=== PATIENT | female | born 1955 | race Caucasian/White ===

== ENCOUNTER 2018-08-21 17:05 | Emergency (ER) | payer MEDICARE ==
[~2018-08-21] VITALS: Ht 165.1 cm; Wt 77.1 kg
[~2018-08-21 17:05] MED LIST: GABA-490 PO; HYDR-2890 PO; [UNRECOGNIZED DRUG - REMARK] PO
--- NOTE | 2018-08-21 17:12 | NUR ---
PT REFUSED IV INSERTION AND LABS, EXPLAINED TO PT THE NEED FOR A SECURE IV SITE AND LAB VALUES. PT VERBALIZED UNDERSTANDING AND REFUSED.
--- NOTE | 2018-08-21 17:16 | NUR ---
PT ADVISED AGAIN THE NEED FOR SECURE IV SITE, PT CONSENTED TO PROCEDURE AFTER TALKING TO HER DAUGHTER.
[2018-08-21] MEDS ORDERED: NS IV 1000 ML 1,000 ML IV SCH (17:48)
[2018-08-21 17:58] LABS: BASOPHILS # (AUTO) 0.1 10^3/uL (0.0-0.1); BASOPHILS % (AUTO) 1 % (0-10); EOSINOPHILS # (AUTO) 0.2 10^3/uL (0.0-0.3); EOSINOPHILS % (AUTO) 3 % (0-10); HEMATOCRIT 37 % (35-52); HEMOGLOBIN 12.5 G/DL (11.5-16.0); LYMPHOCYTES # (AUTO) 1.4 X 10^3 (1.0-4.0); LYMPHOCYTES % (AUTO) 24 % (12-44); MEAN CORPUSCULAR HEMOGLOBIN 31 PG (25-34); MEAN CORPUSCULAR HGB CONC 34 G/DL (32-36); MEAN CORPUSCULAR VOLUME 94 FL (80-99); MEAN PLATELET VOLUME 10.5 FL (7.4-10.4); MONOCYTES # (AUTO) 0.6 X 10^3 (0.0-1.0); MONOCYTES % (AUTO) 11 % (0-12); NEUTROPHILS # (AUTO) 3.6 X 10^3 (1.8-7.8); NEUTROPHILS % (AUTO) 61 % (42-75); PLATELET COUNT 246 10^3/uL (130-400); RED CELL DISTRIBUTION WIDTH 13.1 % (10.0-14.5); WHITE BLOOD COUNT 5.8 10^3/uL (4.3-11.0)
[2018-08-21 18:13] LABS: ALANINE AMINOTRANSFERASE 20 U/L (0-55); ALBUMIN 4.1 GM/DL (3.2-4.5); ALKALINE PHOSPHATASE 101 U/L (40-136); AMMONIA 52 UMOL/L (11-32); BILIRUBIN,TOTAL 0.2 MG/DL (0.1-1.0); BUN/CREATININE RATIO 18; CARBON DIOXIDE 25 MMOL/L (21-32); CHLORIDE 110 MMOL/L (98-107); GFR ESTIMATED > 60; GLUCOSE 77 MG/DL (70-105); MAGNESIUM 2.3 MG/DL (1.8-2.4); POTASSIUM 3.9 MMOL/L (3.6-5.0); SODIUM 142 MMOL/L (135-145); TOTAL PROTEIN 7.1 GM/DL (6.4-8.2)
[2018-08-21 18:18] LABS: BILIRUBIN,URINE NEGATIVE (NEGATIVE); CLARITY,URINE SLIGHTLY CLOUDY; COLOR,URINE YELLOW; GLUCOSE, URINE (UA) NEGATIVE (NEGATIVE); KETONES,URINE NEGATIVE (NEGATIVE); LEUKOCYTE ESTERASE ,URINE 3+ (NEGATIVE); NITRITE,URINE NEGATIVE (NEGATIVE); PH,URINE 5 (5-9); PROTEIN,URINE 1+ (NEGATIVE); UROBILINOGEN,URINE NORMAL (NORMAL)
[2018-08-21 18:18] LABS: ERYTHROCYTE SEDIMENTATION RATE 20 MM/HR (0-30)
[2018-08-21 18:26] LABS: BACTERIA,URINE MODERATE /HPF
[2018-08-21 18:32] LABS: AMPHETAMINE SCREEN, URINE NEGATIVE (NEGATIVE); BARBITURATE SCREEN URINE NEGATIVE (NEGATIVE); BENZODIAZEPINES SCREEN URINE NEGATIVE (NEGATIVE); CANNABINOID SCREEN, URINE NEGATIVE (NEGATIVE); COCAINE SCREEN URINE NEGATIVE (NEGATIVE); METHADONE STAT NEGATIVE (NEGATIVE); METHAMPHETAMINE SCREEN URINE S NEGATIVE (NEGATIVE); OPIATE SCREEN URINE POSITIVE (NEGATIVE); OXYCODONE STAT NEGATIVE (NEGATIVE); PROPOXYPHENE STAT NEGATIVE (NEGATIVE); TRICYCLIC ANTIDEPRESSANTS SCRE NEGATIVE (NEGATIVE)
--- NOTE | 2018-08-21 18:43 | Diagnostic Imaging Report ---
INDICATION: Acute mental status changes, confusion, and dizziness FINDINGS: Frontal view of the chest demonstrates the lungs to be clear. The heart, mediastinum, pulmonary vascularity and visualized bony thorax are normal. IMPRESSION: Normal portable chest. Dictated by: Dictated on workstation # [id number]
[2018-08-21] MEDS ORDERED: CARB200T5 (19:02)
[2018-08-21] MEDS ORDERED: DONE10TA41 (19:02)
[2018-08-21] MEDS ORDERED: PREG75CA (19:02)
[2018-08-21] MEDS ORDERED: APIX5TAB (19:02)
[2018-08-21] MEDS ORDERED: ATOR10TA66 (19:02)
[2018-08-21] MEDS ORDERED: METO-333 (19:02)
[2018-08-21] MEDS ORDERED: PREG150C (19:02)
[2018-08-21] MEDS ORDERED: DIME240C2 (19:02)
[2018-08-21] MEDS ORDERED: BACL20TA (19:02)
--- NOTE | 2018-08-21 19:04 | Diagnostic Imaging Report ---
PROCEDURE: CT head without contrast. TECHNIQUE: Multiple contiguous axial images were obtained through the brain without the use of intravenous contrast. Auto Exposure Controls were utilized during the CT exam to meet ALARA standards for radiation dose reduction. INDICATION: Dizziness, confusion. COMPARISON: 08/07/2014. FINDINGS: Mild degree of cerebral cortical atrophy and periventricular white matter disease are stable chronic findings. There is no focal or generalized cortical edema. No findings of elevated pressures. There is no intracerebral hemorrhage. There is no mass or mass effect. The orbits, sinuses, and calvarium appear nonacute. No change. IMPRESSION: Atrophy and white matter disease stable. No hemorrhage, edema, or acute finding. Dictated by: Dictated on workstation # [id number]
[2018-08-21] MEDS ORDERED: cefTRIAXone FOR IV USE 1,000 MG in WATER (STERILE) FOR INJECTION 10 ML IV ONE (19:15)
[2018-08-21] MEDS ORDERED: methylPREDNISolone 125 MG (Solu-MEDROL) VIAL IVP ONE (19:15)
[2018-08-21] MEDS ORDERED: NITR-65 PO (19:49)
--- NOTE | 2018-08-21 19:49 | ED General ---
General Chief Complaint: Dizziness/Syncope Stated Complaint: CONFUSION/DIZZINESS Nursing Triage Note: PT PRESENTS TO THE ED AMBULATORY, VERBALIZED SHE HAS HAD INCREASING MEMORY RETENTION ISSUES AND INTERMITTENT DIZZYNESS, PT IS UNABLE TO RECALL HOW LONG THESE SYMPTOMS ARE PRESENT. DAUGHTER CALLS THE PT ON THE PHONE AND REPORTS THE PT HAS A HX OF MS AND EARLY ONSET ALZHEIMERS. PT STATES THE DIZZYNESS IS A COMMON OCCURENCE FOR HER, STATES THAT THIS TIME FEELS SIMILAR TO PREVIOUS EPISODES, DATING BACK TO AN UNKNOWN DATE AND TIME PER PT Nursing Sepsis Screen: No Definite Risk Source of Information: Patient (EXTREMELY POOR HISTORIAN), Family (DAUGHTER GIVES VERY BRIEF INFORMATION ), Other (BOYFRIEND CANNOT GIVE ANY RELEVANT INFORMATION) History of Present Illness Date Seen by Provider: Aug 21, 2018 Time Seen by Provider: 18:00 Initial Comments PT ARRIVES VIA POV--PT REPORTEDLY DROVE HERSELF HERE, ALLEGEDLY TO VISIT A NEIGHBOR IN THE HOSPITAL, BUT SOMEHOW ENDED UP IN ER--DETAILS ARE NOT KNOWN. Allergies and Home Medications Allergies Coded Allergies: No Known Drug Allergies (Unverified , 08/07/14) Home Medications Gabapentin 400 Mg Capsule, 800 MG PO UP TO 5X DAILY, (Reported) Hydrocodone Bit/Acetaminophen 1 Each Tablet, 1 EACH PO QID PRN, (Reported) Nitrofurantoin Monohyd/M-Cryst 100 Mg Capsule, 100 MG PO BID Prescribed by: JULIUS ARORA on 08/21/181948 [Ms Meds] , Unknown Dose PO DAILY, (Reported) Past Atbmsog-Bxlobl-Gtnaec Hx Patient Social History Recent Foreign Travel: No Contact w/Someone Who Travel: No Recent Infectious Disease Expo: No Recent Hopitalizations: No Immunizations Up To Date Tetanus Booster (TDap): Unknown Seasonal Allergies Seasonal Allergies: No Past Medical History Surgeries: Yes Gallbladder, Hysterectomy Respiratory: No Cardiac: No Neurological: Yes Multiple Sclerosis : No Reproductive Disorders: Yes (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 oz. [id number]; BMI Method:Stated Progress/Results/Core Measures Suspected Sepsis Recent Fever Within 48 Hours: No Infection Criteria Present: None New/Unexplained Altered Menta: No Sepsis Screen: No Definite Risk SIRS Temperature:97.4 Pulse: 55 Respiratory Rate: 20 Laboratory Tests 08/21/18 17:26: White Blood Count 5.8 Blood Pressure 164 /94 Mean: 117 Laboratory Tests 08/21/18 17:26: Creatinine 0.80, Platelet Count 246, Total Bilirubin 0.2 Results/Orders Lab Results Laboratory Tests Test 08/21/18 17:26 08/21/18 18:13 08/21/18 18:19 Range/Units White Blood Count 5.8 4.3-11.0 10^3/uL Red Blood Count 3.98 L 4.35-5.85 10^6/uL Hemoglobin 12.5 11.5-16.0 G/DL Hematocrit 37 35-52 % Mean Corpuscular Volume 94 80-99 FL Mean Corpuscular Hemoglobin 31 25-34 PG Mean Corpuscular Hemoglobin Concent 34 32-36 G/DL Red Cell Distribution Width 13.1 10.0-14.5 % Platelet Count 246 130-400 10^3/uL Mean Platelet Volume 10.5 H 7.4-10.4 FL Neutrophils (%) (Auto) 61 42-75 % Lymphocytes (%) (Auto) 24 12-44 % Monocytes (%) (Auto) 11 0-12 % Eosinophils (%) (Auto) 3 0-10 % Basophils (%) (Auto) 1 0-10 % Neutrophils # (Auto) 3.6 1.8-7.8 X 10^3 Lymphocytes # (Auto) 1.4 1.0-4.0 X 10^3 Monocytes # (Auto) 0.6 0.0-1.0 X 10^3 Eosinophils # (Auto) 0.2 0.0-0.3 10^3/uL Basophils # (Auto) 0.1 0.0-0.1 10^3/uL Erythrocyte Sedimentation Rate 20 0-30 MM/HR Sodium Level 142 135-145 MMOL/L Potassium Level 3.9 3.6-5.0 MMOL/L Chloride Level 110 H 98-107 MMOL/L Carbon Dioxide Level 25 21-32 MMOL/L Anion Gap 7 5-14 MMOL/L Blood Urea Nitrogen 14 7-18 MG/DL Creatinine 0.80 0.60-1.30 MG/DL Estimat Glomerular Filtration Rate > 60 BUN/Creatinine Ratio 18 Glucose Level 77 70-105 MG/DL Calcium Level 9.0 8.5-10.1 MG/DL Corrected Calcium 8.9 8.5-10.1 MG/DL Magnesium Level 2.3 1.8-2.4 MG/DL Total Bilirubin 0.2 0.1-1.0 MG/DL Aspartate Amino Transf (AST/SGOT) 25 5-34 U/L Alanine Aminotransferase (ALT/SGPT) 20 0-55 U/L Alkaline Phosphatase 101 40-136 U/L Ammonia 52 H 11-32 UMOL/L Troponin I < 0.028 <0.028 NG/ML C-Reactive Protein High Sensitivity 0.55 H 0.00-0.50 MG/DL Total Protein 7.1 6.4-8.2 GM/DL Albumin 4.1 3.2-4.5 GM/DL Thyroid Stimulating Hormone (TSH) 2.64 0.35-4.94 UIU/ML Carbamazepine (Tegretol) Level 12.2 *H 4.0-12.0 UG/ML Serum Alcohol < 10 <10 MG/DL Urine Color YELLOW Urine Clarity SLIGHTLY CLOUDY Urine pH 5 5-9 Urine Specific Ada 1.020 1.016-1.022 Urine Protein 1+ H NEGATIVE Urine Glucose (UA) NEGATIVE NEGATIVE Urine Ketones NEGATIVE NEGATIVE Urine Nitrite NEGATIVE NEGATIVE Urine Bilirubin NEGATIVE NEGATIVE Urine Urobilinogen NORMAL NORMAL MG/DL Urine Leukocyte Esterase 3+ H NEGATIVE Urine RBC (Auto) NEGATIVE NEGATIVE Urine RBC NONE /HPF Urine WBC 5-10 H /HPF Urine Squamous Epithelial Cells 10-25 H /HPF Urine Crystals NONE /LPF Urine Bacteria MODERATE H /HPF Urine Casts NONE /LPF Urine Mucus MODERATE H /LPF Urine Culture Indicated YES Urine Opiates Screen POSITIVE H NEGATIVE Urine Oxycodone Screen NEGATIVE NEGATIVE Urine Methadone Screen NEGATIVE NEGATIVE Urine Propoxyphene Screen NEGATIVE NEGATIVE Urine Barbiturates Screen NEGATIVE NEGATIVE Ur Tricyclic Antidepressants Screen NEGATIVE NEGATIVE Urine Phencyclidine Screen NEGATIVE NEGATIVE Urine Amphetamines Screen NEGATIVE NEGATIVE Urine Methamphetamines Screen NEGATIVE NEGATIVE Urine Benzodiazepines Screen NEGATIVE NEGATIVE Urine Cocaine Screen NEGATIVE NEGATIVE Urine Cannabinoids Screen NEGATIVE NEGATIVE Glucometer 78 70-110 MG/DL My Orders Orders - MAITE,JULIUS K DO Ct Head Wo (08/21/18 18:02) Carbamazepine (Tegretol) (08/21/18 19:07) Ceftriaxone For Iv Use (Rocephin For I (08/21/18 19:15) Methylprednisolone Sod Succ (Solu-Medrol (08/21/18 19:15) Medications Given in ED Current Medications Medications Dose Ordered Sig/Jay Jay Route Start Time Stop Time Status Last Admin Dose Admin Ceftriaxone Sodium 1000 mg/ Sterile Water 10 ml @ 200 mls/hr ONCE ONCE IV 08/21/18 19:15 08/21/18 19:17 DC 08/21/18 19:19 200 MLS/HR Methylprednisolone Sodium Succinate 125 mg ONCE ONCE IVP 08/21/18 19:15 08/21/18 19:17 DC 08/21/18 19:23 125 MG Vital Signs/I&O 08/21/18 08/21/18 17:10 21:15 Temp 97.4 97.4 Pulse 55 55 Resp 20 20 B/P (MAP) 164/94 (117) 164/89 (114) Pulse Ox 97 97 O2 Delivery Room Air Room Air Capillary Refill : Less Than 3 Seconds Blood Pressure Mean: 117 Point of Care Testing Finger Stick Blood Glucose: 79 Departure Impression Primary Impression: UTI (urinary tract infection) Additional Impressions: Lightheadedness Dementia Multiple sclerosis Disposition: 01 HOME, SELF-CARE Condition: Stable Departure-Patient Inst. Referrals: NO,LOCAL PHYSICIAN (PCP/Family) Primary Care Physician Patient Instructions: Dizziness, Nonvertigo, (DC), Dementia (DC), Urinary Tract Infections in Adults, Multiple Sclerosis, Adult (DC) Add. Discharge Instructions: HOLD YOUR CARBAMAZEPINE FOR 1 DAY, THEN RESTART AT YOUR NORMAL DOSE TAKE YOUR OTHER MEDICATIONS PRESCRIBED NO PAIN PILLS FOR REST OF TODAY ALL MEDICATIONS NEED TO BE LOCKED, AND SOMEONE NEEDS TO MANAGE HER MEDICATIONS AND ADMINISTER HER MEDICATIONS TO HER EACH DAY NO DRIVING AT ANY TIME!!!!!! FOLLOW UP WITH YOUR NEUROLOGIST TOMORROW SCHEDULED FOLLOW UP WITH YOUR FAMILY THIS WEEK FOR FURTHER CARE All discharge instructions reviewed with patient and/or family. Voiced understanding. Scripts Nitrofurantoin Monohyd/M-Cryst (Macrobid 100 mg Capsule) 100 Mg Capsule 100 MG PO BID, #20 CAP Prov: JULIUS ARORA DO 08/21/18 JULIUS ARORA DO Aug 21, 2018 19:49
[2018-08-21 21:15] VITALS: BP 164/89
== END 2018-08-21 20:07 | disposition home or self-care (01) ==
LOC: EDUNIT# 17:05 → ER 17:06
DX: N39.0 Urinary tract infection, site not specified (principal); R42 Dizziness and giddiness; F03.90 Unspecified dementia, unspecified severity, without behavioral disturbance, psychotic disturbance, mood disturbance, and anxiety; G35 Multiple sclerosis; Z85.41 Personal history of malignant neoplasm of cervix uteri; Z90.710 Acquired absence of both cervix and uterus; Z98.890 Other specified postprocedural states
CPT/HCPCS: 36415; 70450; 71045; 80053; 80156; 80306; 80320; 81000; 82140; 82962; 83735; 84443; 84484; 85025; 85652; 86141; 87088; 93005

== ENCOUNTER 2018-09-22 23:17 | Emergency (ER) | payer MEDICARE ==
[~2018-09-22] VITALS: Ht 165.1 cm; Wt 77.1 kg
[~2018-09-22 23:17] MED LIST changes: +APIX5TAB; +ATOR10TA66; +BACL20TA; +CARB200T5; +DIME240C2; +DONE10TA41; +METO-333; +NITR-65 PO; +PREG150C; +PREG75CA
[2018-09-22] MEDS ORDERED: KETOROLAC 30 MG/ML VIAL IVP STA (23:53)
[2018-09-22] MEDS ORDERED: fentaNYL INJECTION 100 MCG/2 ML AMP IVP STA (23:53)
[2018-09-23] LABS: BASOPHILS # (AUTO) 0.1 10^3/uL (0.0-0.1); BASOPHILS % (AUTO) 1 % (0-10); EOSINOPHILS # (AUTO) 0.2 10^3/uL (0.0-0.3); EOSINOPHILS % (AUTO) 4 % (0-10); HEMATOCRIT 41 % (35-52); HEMOGLOBIN 13.8 G/DL (11.5-16.0); LYMPHOCYTES # (AUTO) 1.4 X 10^3 (1.0-4.0); LYMPHOCYTES % (AUTO) 28 % (12-44); MEAN CORPUSCULAR HEMOGLOBIN 31 PG (25-34); MEAN CORPUSCULAR HGB CONC 34 G/DL (32-36); MEAN CORPUSCULAR VOLUME 92 FL (80-99); MEAN PLATELET VOLUME 10.4 FL (7.4-10.4); MONOCYTES # (AUTO) 0.5 X 10^3 (0.0-1.0); MONOCYTES % (AUTO) 9 % (0-12); NEUTROPHILS % (AUTO) 58 % (42-75); PLATELET COUNT 199 10^3/uL (130-400); RED CELL DISTRIBUTION WIDTH 13.2 % (10.0-14.5); WHITE BLOOD COUNT 5.2 10^3/uL (4.3-11.0)
[2018-09-23] MEDS ORDERED: DEXAMETHASONE 10 MG/ML (DECADRON) 1 ML VIAL IV ONE
--- NOTE | 2018-09-23 | ED General ---
General Chief Complaint: General Problems/Pain Stated Complaint: PAIN IN FACE Nursing Triage Note: PT STATES SHE HAS A HX OF BELLS PALSY AND TRIGEMINAL NEURALGIA, STATES SHE HAS HAD LEFT SIDED PAIN WITH DIFFICULTY SWALLOWING AND SPEAKING STATES THAT SHE RECIEVED THREE INJECTIONS FROM HER PAIN SPECIALIST FOR THE TRIGEMINAL NEURALGIA WITH NO RELIEF. Nursing Sepsis Screen: No Definite Risk Source of Information: Patient, Family Exam Limitations: Physical Impairments History of Present Illness Date Seen by Provider: September 22, 2018 Time Seen by Provider: 23:46 Initial Comments Here with report of left facial pain that she reports is related to her trigeminal neuralgia. Apparently she has flares intermittently and has had several over the last year. She was seen by her pain doctor in a few days ago and given shots but they're not sure of what. Normally takes hydrocodone but has not done that the last 24 hours due to pain of opening her mouth. She was able to take her Lyrica and carbamazepine. She also took her blood thinner and medication for MS. Patient initially would not talk at all due to pain but she was able to verbalize with instruction although has limited mouth movement. States everything is hurting on the left side of her face and typical of her flare. Timing/Duration: 3-4 Days Severity: Moderate Associated Systoms: No Cough, No Fever/Chills, No Nausea/Vomiting, No Shortness of Air, No Weakness Allergies and Home Medications Allergies Coded Allergies: No Known Drug Allergies (Unverified , 08/07/14) Home Medications Gabapentin 400 Mg Capsule, 800 MG PO UP TO 5X DAILY, (Reported) Hydrocodone Bit/Acetaminophen 1 Each Tablet, 1 EACH PO QID PRN, (Reported) Nitrofurantoin Monohyd/M-Cryst 100 Mg Capsule, 100 MG PO BID Prescribed by: JULIUS ARORA on 08/21/181948 [Ms Meds] , Unknown Dose PO DAILY, (Reported) Patient Home Medication List Home Medication List Reviewed: Yes Review of Systems Review of Systems Constitutional: see HPI; No chills, No fever EENTM: see HPI, ear pain, mouth pain Respiratory: no symptoms reported Cardiovascular: no symptoms reported Gastrointestinal: no symptoms reported Genitourinary: no symptoms reported Musculoskeletal: see HPI, joint pain, muscle pain Psychiatric/Neurological: See HPI Past Cbbdszv-Znmcko-Uadibj Hx Past Med/Social Hx: Reviewed Nursing Past Med/Soc Hx Patient Social History Alcohol Use: Denies Use Recreational Drug Use: No Smoking Status: Never a Smoker Recent Foreign Travel: No Contact w/Someone Who Travel: No Recent Infectious Disease Expo: No Recent Hopitalizations: No Immunizations Up To Date Tetanus Booster (TDap): Unknown PED Vaccines UTD: No Seasonal Allergies Seasonal Allergies: No Past Medical History Surgeries: Yes Breast, Gallbladder, Hysterectomy Respiratory: No Cardiac: Yes Atrial Fibrillation Neurological: Yes (trigeminal neuralgia) Dementia, Multiple Sclerosis : No 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 oz. 77.854260pe; 29.75 BMI Method:Stated General Appearance: WD/WN, Mild Distress HEENT: PERRL/EOMI, TMs Normal, Other (limits mouth movement due to pain and very tender in the left side of her face to any touch) Neck: Non Tender, Supple Respiratory: Lungs Clear, Normal Breath Sounds Cardiovascular: Regular Rate, Rhythm, No Murmur Neurologic/Psychiatric: Alert, Oriented x3 Progress/Results/Core Measures Suspected Sepsis Recent Fever Within 48 Hours: No Infection Criteria Present: None New/Unexplained Altered Menta: No Sepsis Screen: No Definite Risk SIRS Temperature:97.5 Pulse: 58 Respiratory Rate: 20 Laboratory Tests 09/22/18 23:48: White Blood Count 5.2 Blood Pressure 137 /91 Mean: 106 Laboratory Tests 09/22/18 23:48: Creatinine 0.81, Platelet Count 199, Total Bilirubin 0.4 Results/Orders Lab Results Laboratory Tests Test 09/22/18 23:48 Range/Units White Blood Count 5.2 4.3-11.0 10^3/uL Red Blood Count 4.43 4.35-5.85 10^6/uL Hemoglobin 13.8 11.5-16.0 G/DL Hematocrit 41 35-52 % Mean Corpuscular Volume 92 80-99 FL Mean Corpuscular Hemoglobin 31 25-34 PG Mean Corpuscular Hemoglobin Concent 34 32-36 G/DL Red Cell Distribution Width 13.2 10.0-14.5 % Platelet Count 199 130-400 10^3/uL Mean Platelet Volume 10.4 7.4-10.4 FL Neutrophils (%) (Auto) 58 42-75 % Lymphocytes (%) (Auto) 28 12-44 % Monocytes (%) (Auto) 9 0-12 % Eosinophils (%) (Auto) 4 0-10 % Basophils (%) (Auto) 1 0-10 % Neutrophils # (Auto) 3.0 1.8-7.8 X 10^3 Lymphocytes # (Auto) 1.4 1.0-4.0 X 10^3 Monocytes # (Auto) 0.5 0.0-1.0 X 10^3 Eosinophils # (Auto) 0.2 0.0-0.3 10^3/uL Basophils # (Auto) 0.1 0.0-0.1 10^3/uL Sodium Level 146 H 135-145 MMOL/L Potassium Level 3.4 L 3.6-5.0 MMOL/L Chloride Level 111 H 98-107 MMOL/L Carbon Dioxide Level 23 21-32 MMOL/L Anion Gap 12 5-14 MMOL/L Blood Urea Nitrogen 17 7-18 MG/DL Creatinine 0.81 0.60-1.30 MG/DL Estimat Glomerular Filtration Rate > 60 BUN/Creatinine Ratio 21 Glucose Level 95 70-105 MG/DL Calcium Level 9.4 8.5-10.1 MG/DL Corrected Calcium 9.1 8.5-10.1 MG/DL Total Bilirubin 0.4 0.1-1.0 MG/DL Aspartate Amino Transf (AST/SGOT) 24 5-34 U/L Alanine Aminotransferase (ALT/SGPT) 21 0-55 U/L Alkaline Phosphatase 94 40-136 U/L C-Reactive Protein High Sensitivity 0.20 0.00-0.50 MG/DL Total Protein 7.6 6.4-8.2 GM/DL Albumin 4.4 3.2-4.5 GM/DL My Orders Orders - SAIMA MEDINA MD Cbc With Automated Diff (09/22/18 23:53) Comprehensive Metabolic Panel (09/22/18 23:53) Hs C Reactive Protein (09/22/18 23:53) Fentanyl Injection (Sublimaze Injection (09/22/18 23:53) Ketorolac Injection (Toradol Injection) (09/22/18 23:53) Dexamethasone Injection (Decadron Inject (09/23/18 00:00) Medications Given in ED Current Medications Medications Dose Ordered Sig/Jay Jay Route Start Time Stop Time Status Last Admin Dose Admin Dexamethasone Sodium Phosphate 10 mg ONCE ONCE IV 09/23/18 00:00 09/23/18 00:01 DC 09/23/18 00:03 10 MG Vital Signs/I&O 09/22/18 23:20 Temp 97.5 Pulse 58 Resp 20 B/P (MAP) 137/91 (106) Pulse Ox 96 O2 Delivery Room Air Capillary Refill : Less Than 3 Seconds Blood Pressure Mean: 106 Progress Note : Progress Note Seen and evaluated. IV, labs, as well as 100 g IV, Toradol 30 mg IV and Decadron 10 mg IV ordered. Monitor patient. 0029) overall doing better. She is able to open her mouth and states it's more tolerable now. Discharged home with return precautions. Patient verbalize understanding instructions and agreement with plan. Instructed to drink fluids when she gets home. Departure Impression Primary Impression: Trigeminal neuralgia of left side of face Disposition: HOME, SELF-CARE Condition: Improved Departure-Patient Inst. Decision time for Depature: 00:32 Referrals: [facility] (PCP) Primary Care Physician WHITNEY BERRY APRN (Family) Primary Care Physician Patient Instructions: Trigeminal Neuralgia Add. Discharge Instructions: All discharge instructions reviewed with patient and/or family. Voiced understanding. Continue home medications as previously prescribed. Drink plenty of fluids and try to eat a soft diet. Follow up with your doctor Tuesday for recheck and further evaluation. Return for worse pain, fever, vomiting, weakness, breathing problems or other concerns as needed. SAIMA MEDINA MD September 23, 2018 00:00
[2018-09-23 00:13] LABS: ALANINE AMINOTRANSFERASE 21 U/L (0-55); ALBUMIN 4.4 GM/DL (3.2-4.5); ALKALINE PHOSPHATASE 94 U/L (40-136); BILIRUBIN,TOTAL 0.4 MG/DL (0.1-1.0); BUN/CREATININE RATIO 21; CALCIUM 9.4 MG/DL (8.5-10.1); CARBON DIOXIDE 23 MMOL/L (21-32); CHLORIDE 111 MMOL/L (98-107); CREATININE SERUM 0.81 MG/DL (0.60-1.30); GFR ESTIMATED > 60; GLUCOSE 95 MG/DL (70-105); POTASSIUM 3.4 MMOL/L (3.6-5.0); SODIUM 146 MMOL/L (135-145); TOTAL PROTEIN 7.6 GM/DL (6.4-8.2)
[2018-09-23 00:39] VITALS: BP 137/91
== END 2018-09-23 00:39 | disposition home or self-care (01) ==
LOC: EDUNIT# 23:17 → ER 23:20
DX: G50.0 Trigeminal neuralgia (principal); I48.91 Unspecified atrial fibrillation; F03.90 Unspecified dementia, unspecified severity, without behavioral disturbance, psychotic disturbance, mood disturbance, and anxiety; G35 Multiple sclerosis; E11.9 Type 2 diabetes mellitus without complications; Z85.41 Personal history of malignant neoplasm of cervix uteri; Z90.710 Acquired absence of both cervix and uterus; Z98.890 Other specified postprocedural states
CPT/HCPCS: 36415; 80053; 85025; 86141

== ENCOUNTER 2018-11-26 21:26 | Emergency (ER) | payer MEDICARE ==
[~2018-11-26] VITALS: Ht 165.1 cm; Wt 77.1 kg
--- NOTE | 2018-11-26 21:54 | ED Fall/Injury ---
General Stated Complaint: FALL Source: patient Exam Limitations: no limitations (AMY SANCHEZ APRN) History of Present Illness Date Seen by Provider: Nov 26, 2018 Time Seen by Provider: 21:53 Initial Comments To ER by private vehicle with reports of trip and fall. She did strike the right side of her forehead on the ground. She did not lose consciousness. She is on Eliquis. No vomiting. She was walking behind [place] of [employer] when she stubbed her toe and tripped. She has an abrasion to the dorsal right elbow and some swelling and pain at the right wrist on the ulnar side. Occurred: just prior to arrival Severity: moderate Injuries/Pain Location: head Loss of Consciousness: no loss of consciousness Associated Symptoms (Fall): No Abdominal Pain, No Chest Pain, No Confusion, No Dizziness, No Headache, No Neck Pain (AMY SANCHEZ APRN) Allergies and Home Medications Allergies Coded Allergies: No Known Drug Allergies (Unverified , 08/07/14) Home Medications Gabapentin 400 Mg Capsule, 800 MG PO UP TO 5X DAILY, (Reported) Hydrocodone Bit/Acetaminophen 1 Each Tablet, 1 EACH PO QID PRN, (Reported) Nitrofurantoin Monohyd/M-Cryst 100 Mg Capsule, 100 MG PO BID Prescribed by: JULIUS ARORA on 08/21/181948 [Ms Meds] , Unknown Dose PO DAILY, (Reported) Patient Home Medication List Home Medication List Reviewed: Yes (AMY SANCHEZ APRN) Review of Systems Review of Systems Constitutional: see HPI Eyes: No Symptoms Reported Ears, Nose, Mouth, Throat: no symptoms reported Respiratory: no symptoms reported Cardiovascular: no symptoms reported Genitourinary: no symptoms reported Musculoskeletal: see HPI Skin: no symptoms reported Psychiatric/Neurological: No Symptoms Reported (AMY SANCHEZ APRN) Past Gwjnoec-Bxnmrr-Xcrykg Hx Patient Social History Recent Foreign Travel: No Contact w/Someone Who Travel: No Recent Hopitalizations: No (AMY SANCHEZ APRN) Immunizations Up To Date Tetanus Booster (TDap): Unknown PED Vaccines UTD: No (AMY SANCHEZ APRN) Seasonal Allergies Seasonal Allergies: No (AMY SANCHEZ APRN) Past Medical History Surgeries: Yes Breast, Gallbladder, Hysterectomy Respiratory: No Cardiac: Yes Atrial Fibrillation Neurological: Yes (trigeminal neuralgia) Dementia, Multiple Sclerosis 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 oz. 77.591984uu; 29.75 BMI Method:Stated (AMY SANCHEZ APRN) General Appearance: WD/WN, no apparent distress HEENT: PERRL/EOMI, TMs normal, pharynx normal Neck: non-tender, full range of motion, supple, normal inspection Cardiovascular: regular rate, rhythm, no murmur Respiratory: lungs clear, normal breath sounds Extremities: normal range of motion, pelvis stable, swelling (right brow. Also noted swelling at the right wrist.), other (gait is normal) Neurologic/Psychiatric: alert, normal mood/affect Skin: warm/dry, other (abrasion to the area of the right elbow lateral aspect that appears to be abraded and mild skin tear. There is a small abrasion to the right wrist lateral aspect of the ulnar surface.) (SAIMA MEDINA MD) Gamaliel Coma Score Best Eye Response: (4) Open Spontaneously Best Verbal Response: (5) Oriented Best Motor Response: (6) Obeys Commands (SAIMA MEDINA MD) Progress/Results/Core Measures Results/Orders My Orders Orders - SAIMA MEDINA MD Ct Head/Cervical Spine Wo (11/26/18 22:34) (SAIMA MEDINA MD) Medications Given in ED Current Medications Medications Dose Ordered Sig/Jay Jay Route Start Time Stop Time Status Last Admin Dose Admin Diphtheria/ Tetanus/Acell Pertussis 0.5 ml ONCE ONCE IM 11/26/18 22:00 11/26/18 22:01 DC 11/26/18 23:40 0.5 ML (SAIMA MEDINA MD) Vital Signs/I&O 11/26/18 21:57 Temp 97.7 Pulse 56 Resp 18 B/P (MAP) 151/81 (104) O2 Delivery Room Air (SAIMA MEDINA MD) Progress Progress Note : Progress Note Seen and evaluated with Amy Sanchez APRN. CT head and x-ray of the right wrist ordered. We will update tetanus as she is unsure of last one. Patient declines pain medicine. Wounds cleaned and covered with dressing by nursing. (SAIMA MEDINA MD) Diagnostic Imaging Diagonstic Imaging: Xray Plain Films/CT/US/NM/MRI: other (right wrist) Comments No acute fracture but does have chronic ulnar styloid fracture. Patient states that occurred on previous injury. Reviewed: Reviewed by Me Diagonstic Imaging: CT Plain Films/CT/US/NM/MRI: c-spine, head Comments No acute findings. Cannot exclude normal pressure hydrocephalus. C-spine shows no acute findings. Reviewed: Reviewed [place] Study (SAIMA MEDINA MD) Departure Impression Primary Impression: Head injury Qualified Codes: S09.90XA - Unspecified injury of head, initial encounter Additional Impressions: Abrasion of right elbow Qualified Codes: S50.311A - Abrasion of right elbow, initial encounter Strain of right wrist Qualified Codes: S66.911A - Strain of unspecified muscle, fascia and tendon at wrist and hand level, right hand, initial encounter Disposition: 01 HOME, SELF-CARE Condition: Stable Departure-Patient Inst. Decision time for Depature: 23:49 (SAIMA MEDINA MD) Referrals: [facility] [place]) Primary Care Physician WHITNEY BERRY APRN (Family) Primary Care Physician Patient Instructions: Closed Head Injury (DC), Skin Abrasions, Wrist Sprain (DC) Add. Discharge Instructions: Take medications as directed.You may take ibuprofen 600 mg every 8 hours as needed for pain. You may also take Tylenol/acetaminophen 1000 mg every 8 hours as needed for pain. You may use antibiotic ointment and dressing or Band-Aid over wounds to elbow and wrist once or twice daily. It is okay to shower and gently clean wounds. Do not soak wounds for prolonged period of time in any body of water. Return for worse pain, weakness, breathing problems, vision or balance problems, vomiting, difficulty walking or other concerns as needed. Follow-up with your Dr. in a few days for recheck. AMY SANCHEZ APRN Nov 26, 2018 21:54 SAIMA MEDINA MD Nov 26, 2018 22:00
[2018-11-26] MEDS ORDERED: TETANUS,DIPTH,PERTUSS P/F (BOOSTRIX) 0.5 ML VIAL IM ONE (22:00)
[2018-11-27] MEDS ORDERED: HYDROcodone/APAP 5 MG/325 MG (LORTAB) TAB PO ONE
[2018-11-27 00:02] VITALS: BP 110/79
[2018-11-27] MEDS ORDERED: TRAM50TA2 PO (00:09)
--- NOTE | 2018-11-27 06:45 | Diagnostic Imaging Report ---
PROCEDURE: CT head and CT cervical spine without contrast. TECHNIQUE: Multiple contiguous axial images were obtained through the brain and cervical spine without the use of intravenous contrast. Sagittal and coronal reformations through the cervical spine were then performed. Auto Exposure Controls were utilized during the CT exam to meet ALARA standards for radiation dose reduction. INDICATION: Fall with head and neck injury CT head: Similar to the previous study of 08/21/2018, ventricles are prominent with mild low density seen in the periventricular white matter. There is no evidence of hemorrhage or acute infarct. There is no abnormal mass effect or shift of midline structures. Calvarium is intact and visualized paranasal sinuses are clear. IMPRESSION: Continued mild hydrocephalus. Normal pressure hydrocephalus could have this appearance. No definite acute intracranial abnormality is identified. CT cervical spine: There is reversal of the cervical lordosis with moderate narrowing of the C5-6 disc space with associated endplate spurring. No acute fracture or malalignment is identified. IMPRESSION: Localized C5-6 degenerative disc disease with reversal of the cervical lordosis which may be secondary to muscle spasm or positioning. Otherwise, no acute abnormality is identified. Dictated by: Dictated on workstation # [id number]
--- NOTE | 2018-11-27 07:58 | Diagnostic Imaging Report ---
EXAMINATION: Right wrist radiographs, 3 views. COMPARISON: August 07, 2014. HISTORY: 63-year-old female, wrist pain after fall. FINDINGS: There is a deformity of the ulnar styloid which appears well-corticated without particular prominent adjacent soft tissue swelling. This likely relates to sequela of remote prior fracture. This is a new finding since August 07, 2014. There is no identified acute fracture. Bone alignment is grossly unremarkable. The joint spaces are fairly well-preserved. IMPRESSION: 1. Remote prior fracture deformity of the ulnar styloid. 2. No identified acute bony abnormality at the level of the right wrist. Dictated by: Dictated on workstation # [id number]
== END 2018-11-27 00:01 | disposition home or self-care (01) ==
LOC: EDUNIT# 21:26 → ER 21:28
DX: S09.90XA Unspecified injury of head, initial encounter (principal); S66.911A Strain of unspecified muscle, fascia and tendon at wrist and hand level, right hand, initial encounter; S50.311A Abrasion of right elbow, initial encounter; I48.91 Unspecified atrial fibrillation; F03.90 Unspecified dementia, unspecified severity, without behavioral disturbance, psychotic disturbance, mood disturbance, and anxiety; G35 Multiple sclerosis; E11.9 Type 2 diabetes mellitus without complications; Z85.41 Personal history of malignant neoplasm of cervix uteri; Z90.710 Acquired absence of both cervix and uterus; Z79.01 Long term (current) use of anticoagulants; W01.198A Fall on same level from slipping, tripping and stumbling with subsequent striking against other object, initial encounter; Y93.01 Activity, walking, marching and hiking
CPT/HCPCS: 70450; 72125; 73110; 90471; 90715

== ENCOUNTER → 2019-05-25 | Outpatient (CLI) | payer MEDICARE ==
[~2019-05-25] MED LIST changes: +GADOBUTROL 10 MMOL/10 ML (GADAVIST) VIAL IV ONE; +TRM50T PO
[2019-05-25 13:50] LABS: BUN/CREATININE RATIO 17; CREATININE SERUM 0.78 MG/DL (0.60-1.30); GFR ESTIMATED > 60
--- NOTE | 2019-05-25 16:17 | Diagnostic Imaging Report ---
PROCEDURE: MRI lumbar spine with and without contrast. TECHNIQUE: Multiplanar, multisequence MRI of the lumbar spine was performed with and without contrast. INDICATION: Lumbosacral stenosis. History of multiple sclerosis with weakness. COMPARISON: None available. FINDINGS: Lordosis of the lumbar spine is present. There is approximately 4 mm of anterolisthesis of L4 on L5 due to facet osteoarthritis. No fracture or marrow replacing process. No sacral insufficiency fracture. There is mild inflammation surrounding the left L4-L5 facet indicative of degenerative facet synovitis. No pathologic enhancement within the thecal sac. No paravertebral fluid collection. No epidural abscess. The conus terminates at appropriate level and the distal thoracic cord is normal in appearance. L1-L2: No spinal canal, lateral recess or neural foraminal narrowing. L2-L3: Minimal disc bulging. No spinal canal, lateral recess or neural foraminal narrowing. L2-L3: Minimal disc bulging. No spinal canal or lateral recess narrowing. No significant foraminal narrowing. L4-L5: Disc bulge with severe facet osteoarthritis and ligament flavum hypertrophy. This results in moderate spinal stenosis and moderate narrowing of the bilateral lateral recesses. [id number] left and moderate right foraminal narrowing due to anterolisthesis. L5-S1: Minimal disc bulging. No spinal canal, lateral recess or neural foraminal narrowing. IMPRESSION: 1. Grade I anterolisthesis of L4 on L5 secondary to severe facet osteoarthritis. 2. There is moderate spinal stenosis and lateral recess narrowing at L4-L5 due to combination of anterolisthesis, disc bulging and severe facet osteoarthritis. 3. Active degenerative facet osteoarthritis on the left at L4-L5 may be a source of focal pain. Dictated by: Dictated on workstation # [id number]
--- NOTE | 2019-05-25 16:29 | Diagnostic Imaging Report ---
PROCEDURE: MR imaging cervical spine with and without contrast. TECHNIQUE: Multiplanar and multisequence MRI of the cervical spine was performed with and without contrast. INDICATION: Multiple sclerosis, weakness. COMPARISON: CT cervical spine of 11/26/2018. FINDINGS: Straightening of the cervical spine. No spondylolisthesis. No fracture or marrow-replacing process. No features of active facet synovitis. The cervical cord is normal in size and signal throughout. Specifically, there are no T2 hyperintense demyelinating plaques present. Paravertebral musculature is normal. No pathologic enhancement on post contrast imaging. C2-C3: No spinal canal or neuroforaminal narrowing. C3-C4: No spinal canal or neuroforaminal narrowing. C4-C5: Central and bilateral paracentral disc osteophyte complex effaces the ventral thecal sac resulting in mild spinal stenosis. No mass effect on the cord. No foraminal narrowing. C5-C6: Central and bilateral paracentral disc osteophyte complex effaces the ventral thecal sac resulting in mild spinal stenosis. Mild right and moderate left foraminal narrowing due to uncovertebral joint hypertrophy. C6-C7: Central and bilateral paracentral disc osteophyte complex causes mild spinal stenosis. No foraminal narrowing. C7-T1: No spinal canal or neuroforaminal narrowing. IMPRESSION: 1. Normal cervical cord without features of demyelinating plaques. 2. Degenerative disc disease from C4-C5 through C6-C7 results in mild spinal stenosis. However, there is no mass effect on the cervical cord. Dictated by: Dictated on workstation # [id number]
== END ==
LOC: RAD 13:17
PROVIDERS: ATTEND Psychiatry & Neurology Neurology
DX: Z12.31 Encounter for screening mammogram for malignant neoplasm of breast (principal); M48.07 Spinal stenosis, lumbosacral region; M50.321 Other cervical disc degeneration at C4-C5 level; M48.02 Spinal stenosis, cervical region; M43.16 Spondylolisthesis, lumbar region; M47.816 Spondylosis without myelopathy or radiculopathy, lumbar region; M51.26 Other intervertebral disc displacement, lumbar region; G35 Multiple sclerosis
CPT/HCPCS: 36415; 72156; 72158; 82565; 84520

== ENCOUNTER → 2019-05-28 | Outpatient (CLI) | payer MEDICARE ==
--- NOTE | 2019-05-28 14:58 | Diagnostic Imaging Report ---
PROCEDURE: MR imaging of the brain with and without contrast. TECHNIQUE: Multiplanar, multisequence MR imaging of the brain was performed with and without contrast. INDICATION: MS. Patient has weakness. COMPARISON: No prior MRI studies are available for comparison. Comparison is made with CT brain from 11/26/2018. FINDINGS: Ventricles and sulci remain prominent for the patient's age. Moderate periventricular white matter changes are noted, similar to CT study from November. While this could be secondary to chronic microvascular ischemia, patient does have history of MS and these could represent areas of demyelination. No area of enhancement is seen to suggest active demyelination. Areas of increased signal in the high left parietal lobe on diffusion weighted imaging appear to represent T2 shine through on the ADC maps. No definite diffusion restriction is identified. The corpus callosum is unremarkable. The sella and parasellar structures are unremarkable. IMPRESSION: Extensive periventricular and subcortical white matter signal abnormalities, as described. No findings to suggest active demyelination are identified. No acute intracranial hemorrhage is detected. Dictated by: Dictated on workstation # [id number]
== END ==
LOC: RAD 12:58
PROVIDERS: ATTEND Psychiatry & Neurology Neurology
DX: Z13.89 Encounter for screening for other disorder (principal); G35 Multiple sclerosis; R90.82 White matter disease, unspecified
CPT/HCPCS: 70553

== ENCOUNTER → 2019-05-30 | Outpatient (CLI) | payer MEDICARE ==
[~2019-05-30] MED LIST changes: -GADOBUTROL 10 MMOL/10 ML (GADAVIST) VIAL IV ONE
== END ==
LOC: CARD 13:50
PROVIDERS: ATTEND Nurse Practitioner Family
DX: I08.1 Rheumatic disorders of both mitral and tricuspid valves (principal)
CPT/HCPCS: 93306

== ENCOUNTER 2019-08-23 11:45 | Observation (INO) | payer MEDICARE, OTHER ==
[2019-08-23] VITALS (10 sets, daily range): BP systolic 118–150; BP diastolic 64–85
[~2019-08-23] VITALS: Ht 165.1 cm; Wt 78.8 kg
[~2019-08-23 11:45] MED LIST changes: -APIX5TAB; +APIX5TAB PO; -ATOR10TA66; +ATOR10TA66 PO; -BACL20TA; +BACL20TA PO; -CARB200T5; +CARB200T5 PO; -DIME240C2; +DIME240C2 PO; -METO-333; +METO-333 PO; +NALOXONE 2 MG/2 ML (NARCAN) SYR ONE; -PREG150C; +PREG150C PO; -PREG75CA; +PREG75CA PO
[2019-08-23 12:16] LABS: BASOPHILS % (AUTO) 1 % (0-10); EOSINOPHILS # (AUTO) 0.2 10^3/uL (0.0-0.3); EOSINOPHILS % (AUTO) 3 % (0-10); HEMATOCRIT 37 % (35-52); HEMOGLOBIN 12.5 G/DL (11.5-16.0); LYMPHOCYTES # (AUTO) 1.1 X 10^3 (1.0-4.0); LYMPHOCYTES % (AUTO) 24 % (12-44); MEAN CORPUSCULAR HEMOGLOBIN 31 PG (25-34); MEAN CORPUSCULAR HGB CONC 34 G/DL (32-36); MEAN CORPUSCULAR VOLUME 92 FL (80-99); MEAN PLATELET VOLUME 10.5 FL (7.4-10.4); MONOCYTES # (AUTO) 0.4 X 10^3 (0.0-1.0); MONOCYTES % (AUTO) 9 % (0-12); NEUTROPHILS # (AUTO) 2.8 X 10^3 (1.8-7.8); NEUTROPHILS % (AUTO) 63 % (42-75); PLATELET COUNT 217 10^3/uL (130-400); RED CELL DISTRIBUTION WIDTH 13.1 % (10.0-14.5); WHITE BLOOD COUNT 4.4 10^3/uL (4.3-11.0)
--- NOTE | 2019-08-23 12:16 | ED Neurological Problem ---
General Chief Complaint: Unresponsive Stated Complaint: UNRESPONSIVE Source: patient, EMS Exam Limitations: no limitations History of Present Illness Date Seen by Provider: Aug 23, 2019 Time Seen by Provider: 12:12 Initial Comments To ER by EMS from home with reports of unresponsiveness, found by the daughter at around 10 AM today to be confused. She did not recognize her daughter. EMS was then summoned a bit later, brought to the emergency room. She is responsive only to painful stimuli but will occasionally open her eyes to verbal stimuli and answered with "I don't know". History of multiple sclerosis, MRI of brain here on May 2019. She is on baclofen, Lyrica, Epitol, Eliquis, all of these medications are in the bag with her except her norco10/325 po qid (no response with 1mg narcan) . Timing/Duration: 4-6 hours Severity: moderate Allergies and Home Medications Allergies Coded Allergies: No Known Drug Allergies (Unverified , 08/07/14) Home Medications Gabapentin 400 Mg Capsule, 800 MG PO UP TO 5X DAILY, (Reported) Hydrocodone Bit/Acetaminophen 1 Each Tablet, 1 EACH PO QID PRN, (Reported) Tramadol HCl 50 Mg Tablet, 50 MG PO Q6H PRN for PAIN Prescribed by: SAIMA MEDINA on 11/27/18 0009 [Ms Meds] , Unknown Dose PO DAILY, (Reported) Patient Home Medication List Home Medication List Reviewed: Yes Review of Systems Review of Systems Constitutional: see HPI, other (unable to obtain) Ears, Nose, Mouth, Throat: no symptoms reported Past Ekbtbip-Tmhrpc-Kxigle Hx Patient Social History Recent Hopitalizations: No Immunizations Up To Date Tetanus Booster (TDap): Unknown PED Vaccines UTD: No Seasonal Allergies Seasonal Allergies: No Past Medical History Surgeries: Yes Breast, Gallbladder, Hysterectomy Respiratory: No Cardiac: Yes Atrial Fibrillation Neurological: Yes (trigeminal neuralgia) Dementia, Multiple Sclerosis Reproductive Disorders: Yes (CERVICAL CANCER) 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 oz. 77.951583ym; 29.75 BMI Method:Stated General Appearance: WD/WN, no apparent distress HEENT: PERRL/EOMI, normal ENT inspection, other (pupils are equal about 3-4 mm, normal. She does resist eye opening.) Neck: non-tender, full range of motion Respiratory: normal breath sounds, no respiratory distress, no accessory muscle use Gastrointestinal: normal bowel sounds, non tender Extremities: normal range of motion, non-tender Neurologic/Psychiatric: alert, normal mood/affect, oriented x 3 Crainal Nerves: normal hearing, normal speech, PERRL Skin: normal color, warm/dry Opens eyes to loud verbal response, when asked if she took any extra medications or missed any medication dosages she states "I don't know". Does not open her eyes. For the most part only responds to painful stimuli, no other response and no eye opening. Does not have a gag reflex when swabbed for strep. This would give her 2. for eye opening to pain, 3 points for flexion to pain, 4 points for confused verbal response. That would give her a GCS of 9. Progress/Results/Core Measures Results/Orders Lab Results Laboratory Tests Test 08/23/19 11:54 08/23/19 12:00 08/23/19 13:20 Range/Units White Blood Count 4.4 4.3-11.0 10^3/uL Red Blood Count 4.04 L 4.35-5.85 10^6/uL Hemoglobin 12.5 11.5-16.0 G/DL Hematocrit 37 35-52 % Mean Corpuscular Volume 92 80-99 FL Mean Corpuscular Hemoglobin 31 25-34 PG Mean Corpuscular Hemoglobin Concent 34 32-36 G/DL Red Cell Distribution Width 13.1 10.0-14.5 % Platelet Count 217 130-400 10^3/uL Mean Platelet Volume 10.5 H 7.4-10.4 FL Neutrophils (%) (Auto) 63 42-75 % Lymphocytes (%) (Auto) 24 12-44 % Monocytes (%) (Auto) 9 0-12 % Eosinophils (%) (Auto) 3 0-10 % Basophils (%) (Auto) 1 0-10 % Neutrophils # (Auto) 2.8 1.8-7.8 X 10^3 Lymphocytes # (Auto) 1.1 1.0-4.0 X 10^3 Monocytes # (Auto) 0.4 0.0-1.0 X 10^3 Eosinophils # (Auto) 0.2 0.0-0.3 10^3/uL Basophils # (Auto) 0.0 0.0-0.1 10^3/uL Sodium Level 141 135-145 MMOL/L Potassium Level 3.4 L 3.6-5.0 MMOL/L Chloride Level 106 98-107 MMOL/L Carbon Dioxide Level 24 21-32 MMOL/L Anion Gap 11 5-14 MMOL/L Blood Urea Nitrogen 18 7-18 MG/DL Creatinine 0.77 0.60-1.30 MG/DL Estimat Glomerular Filtration Rate > 60 BUN/Creatinine Ratio 23 Glucose Level 114 H 70-105 MG/DL Calcium Level 8.8 8.5-10.1 MG/DL Corrected Calcium 8.6 8.5-10.1 MG/DL Total Bilirubin 0.1 0.1-1.0 MG/DL Aspartate Amino Transf (AST/SGOT) 21 5-34 U/L Alanine Aminotransferase (ALT/SGPT) 19 0-55 U/L Alkaline Phosphatase 109 40-136 U/L Total Protein 7.8 6.4-8.2 GM/DL Albumin 4.2 3.2-4.5 GM/DL Serum Alcohol < 10 <10 MG/DL Urine Color YELLOW Urine Clarity CLEAR Urine pH 6.0 5-9 Urine Specific [place] 1.015 L 1.016-1.022 Urine Protein NEGATIVE NEGATIVE Urine Glucose (UA) NEGATIVE NEGATIVE Urine Ketones NEGATIVE NEGATIVE Urine Nitrite NEGATIVE NEGATIVE Urine Bilirubin NEGATIVE NEGATIVE Urine Urobilinogen 0.2 < = 1.0 MG/DL Urine Leukocyte Esterase NEGATIVE NEGATIVE Urine RBC (Auto) NEGATIVE NEGATIVE Urine RBC NONE /HPF Urine WBC NONE /HPF Urine Squamous Epithelial Cells RARE /HPF Urine Crystals NONE /LPF Urine Bacteria NEGATIVE /HPF Urine Casts NONE /LPF Urine Mucus NEGATIVE /LPF Urine Culture Indicated NO Urine Opiates Screen POSITIVE H NEGATIVE Urine Oxycodone Screen NEGATIVE NEGATIVE Urine Methadone Screen NEGATIVE NEGATIVE Urine Propoxyphene Screen NEGATIVE NEGATIVE Urine Barbiturates Screen NEGATIVE NEGATIVE Ur Tricyclic Antidepressants Screen NEGATIVE NEGATIVE Urine Phencyclidine Screen NEGATIVE NEGATIVE Urine Amphetamines Screen NEGATIVE NEGATIVE Urine Methamphetamines Screen NEGATIVE NEGATIVE Urine Benzodiazepines Screen NEGATIVE NEGATIVE Urine Cocaine Screen NEGATIVE NEGATIVE Urine Cannabinoids Screen NEGATIVE NEGATIVE My Orders Orders - AMY GUTIERREZ APRN Cbc With Automated Diff (08/23/19 12:10) Comprehensive Metabolic Panel (08/23/19 12:10) Ua Culture If Indicated (08/23/19 12:10) Drug Screen Stat (Urine) (08/23/19 12:10) Alcohol (08/23/19 12:10) Ed Iv/Invasive Line Start (08/23/19 12:10) Ct Head Wo (08/23/19 12:10) Chest 1 View, Ap/Pa Only (08/23/19 12:10) Arterial Blood Gas (08/23/19 12:57) Arterial Blood Gas (08/23/19 13:25) Medications Given in ED Current Medications Medications Dose Ordered Sig/Jay Jay Route Start Time Stop Time Status Last Admin Dose Admin Naloxone HCl 2 mg STK-MED ONCE .ROUTE 08/23/19 11:45 08/23/19 11:53 DC 08/23/19 11:53 1 MG Vital Signs/I&O 08/23/19 11:48 Temp 36.2 Pulse 54 Resp 18 B/P (MAP) 149/92 (111) Pulse Ox 95 O2 Delivery Room Air Diagnostic Imaging Diagonstic Imaging: CT Comments NAME: LAILA BATISTA [facility] REC#: [id number] PT STATUS: REG ER : 1955 PHYSICIAN: AMY GUTIERREZ APRN ADMIT DATE: 08/23/19/ER Draft Date of Exam:08/23/19 CT HEAD WO PROCEDURE: CT head without contrast. TECHNIQUE: Multiple contiguous axial images were obtained through the brain without the use of intravenous contrast. Auto Exposure Controls were utilized during the CT exam to meet ALARA standards for radiation dose reduction. INDICATION: Unresponsiveness. Comparison is made with a prior MRI examination from 05/28/2019. FINDINGS: There is moderate global volume loss. There are patchy regions of hypoattenuation are present within the subcortical, more confluent regions of hypoattenuation within the periventricular white matter that correspond to T2 signal changes on the prior MRI in this patient with reported history of known multiple sclerosis. By CT imaging there are no new regions of loss of modi-white differentiation. There are no findings of hemorrhage. There is no mass effect or shift. The ventricles are mildly prominent compatible with volume loss but unchanged in the previous exam. The posterior fossa demonstrates volume loss but no acute process. Mastoid air cells appear clear. The paranasal sinuses are clear. Orbital contents are unremarkable. There is no calvarial abnormality. IMPRESSION: 1. Age-related global volume loss with white matter density changes compatible with patient's history of multiple sclerosis. There has not been evidence of appreciable interval change compared to prior MRI allowing for differences in modality. By CT imaging, no acute intracranial process is demonstrated. Dictated on workstation # [id number] Dict: 08/23/19 1314 Trans: 08/23/19 1319 [facility] [id number] Interpreted by: MARGARITA VO MD Electronically signed by: Departure Communication (Admissions) Time/Spoke to Admitting Phy: 13:22 1249-I spoke with the patient's daughter Carolyn Damon at [phone]. She would like to be called with any updates. She states that the patient gets like this "a lot" but never to this extent. She has taken the patient to her primary care providers office and there was some concern that perhaps she was prescribed to much sedating medication or that the effects of the sedating medications are "overlapping". 1331-she is now, almost certainly, much more alert. She states that she feels fine and wants to go home. However she states that she lives in [place] and was at her house this morning when she was picked up by EMS and cannot be convinced that she was here in [place] when she was picked up by EMS. She states she is going to "go home".. She cannot give me an address but states "I know where I live, this is crazy". Still confused and does not have the capacity to leave AMA at this time. Impression Primary Impression: Altered mental state Additional Impression: excessive sedation Disposition: ADMITTED INPATIENT Condition: Stable Admissions Decision to Admit Reason: Admit from ER (General) Decision to Admit/Date: Aug 23, 2019 Time/Decision to Admit Time: 12:59 Departure-Patient Inst. Referrals: NO,LOCAL PHYSICIAN (PCP) Primary Care Physician WHITNEY BERRY APRN (Family) Primary Care Physician AMY GUTIERREZ APRN Aug 23, 2019 12:16
[2019-08-23 12:17] LABS: BILIRUBIN,URINE NEGATIVE (NEGATIVE); CLARITY,URINE CLEAR; COLOR,URINE YELLOW; GLUCOSE, URINE (UA) NEGATIVE (NEGATIVE); KETONES,URINE NEGATIVE (NEGATIVE); LEUKOCYTE ESTERASE ,URINE NEGATIVE (NEGATIVE); NITRITE,URINE NEGATIVE (NEGATIVE); PROTEIN,URINE NEGATIVE (NEGATIVE)
[2019-08-23 12:22] LABS: ALBUMIN 4.2 GM/DL (3.2-4.5); CHLORIDE 106 MMOL/L (98-107); POTASSIUM 3.4 MMOL/L (3.6-5.0); SODIUM 141 MMOL/L (135-145)
[2019-08-23 12:23] LABS: CALCIUM 8.8 MG/DL (8.5-10.1)
[2019-08-23 12:25] LABS: GLUCOSE 114 MG/DL (70-105); TOTAL PROTEIN 7.8 GM/DL (6.4-8.2)
[2019-08-23 12:26] LABS: BILIRUBIN,TOTAL 0.1 MG/DL (0.1-1.0); CARBON DIOXIDE 24 MMOL/L (21-32)
[2019-08-23 12:28] LABS: ALKALINE PHOSPHATASE 109 U/L (40-136); CREATININE SERUM 0.77 MG/DL (0.60-1.30); GFR ESTIMATED > 60
[2019-08-23 12:29] LABS: BUN/CREATININE RATIO 23
[2019-08-23 12:29] LABS: AMPHETAMINE SCREEN, URINE NEGATIVE (NEGATIVE); BARBITURATE SCREEN URINE NEGATIVE (NEGATIVE); BENZODIAZEPINES SCREEN URINE NEGATIVE (NEGATIVE); CANNABINOID SCREEN, URINE NEGATIVE (NEGATIVE); COCAINE SCREEN URINE NEGATIVE (NEGATIVE); METHADONE STAT NEGATIVE (NEGATIVE); METHAMPHETAMINE SCREEN URINE S NEGATIVE (NEGATIVE); OPIATE SCREEN URINE POSITIVE (NEGATIVE); OXYCODONE STAT NEGATIVE (NEGATIVE); PROPOXYPHENE STAT NEGATIVE (NEGATIVE); TRICYCLIC ANTIDEPRESSANTS SCRE NEGATIVE (NEGATIVE)
[2019-08-23 12:30] LABS: BACTERIA,URINE NEGATIVE /HPF; SQUAMOUS EPITHELIAL CELL,UR RARE /HPF
[2019-08-23 12:31] LABS: ALANINE AMINOTRANSFERASE 19 U/L (0-55)
--- NOTE | 2019-08-23 13:19 | Diagnostic Imaging Report ---
PROCEDURE: CT head without contrast. TECHNIQUE: Multiple contiguous axial images were obtained through the brain without the use of intravenous contrast. Auto Exposure Controls were utilized during the CT exam to meet ALARA standards for radiation dose reduction. INDICATION: Unresponsiveness. Comparison is made with a prior MRI examination from 05/28/2019. FINDINGS: There is moderate global volume loss. There are patchy regions of hypoattenuation are present within the subcortical, more confluent regions of hypoattenuation within the periventricular white matter that correspond to T2 signal changes on the prior MRI in this patient with reported history of known multiple sclerosis. By CT imaging there are no new regions of loss of modi-white differentiation. There are no findings of hemorrhage. There is no mass effect or shift. The ventricles are mildly prominent compatible with volume loss but unchanged in the previous exam. The posterior fossa demonstrates volume loss but no acute process. Mastoid air cells appear clear. The paranasal sinuses are clear. Orbital contents are unremarkable. There is no calvarial abnormality. IMPRESSION: 1. Age-related global volume loss with white matter density changes compatible with patient's history of multiple sclerosis. There has not been evidence of appreciable interval change compared to prior MRI allowing for differences in modality. By CT imaging, no acute intracranial process is demonstrated. Dictated by: Dictated on workstation # [id number]
--- NOTE | 2019-08-23 13:20 | NUR ---
PT MORE AWAKE AT THIS X. PT STATES DOES NOT WANT TO STAY IN HOSPITAL, BUT IS NOT ORIENTED TO LOCATION AND DOES NOT RECALL MORNING EVENTS
--- NOTE | 2019-08-23 13:22 | Diagnostic Imaging Report ---
Portable chest. INDICATION: Unresponsiveness. Comparison made to prior study from 08/21/2018. FINDINGS: Chronic interstitial changes within the lungs. These are stable from the prior exam. There are no new regions of infiltrate or consolidation. There is no effusion or pneumothorax. Heart size mildly prominent but unchanged. Central pulmonary vascularity appears appropriate without evidence of failure. IMPRESSION: Stable radiographic appearance of the chest. No acute cardiopulmonary process demonstrated. Dictated by: Dictated on workstation # [id number]
[2019-08-23 13:29] LABS: ABG BASE EXCESS 1.5 MMOL/L (-2.5-2.5); ABG OXYGEN SATURATION 99 % (94-100); ABG PCO2 37 MMHG (35-45); ABG PH 7.45 (7.37-7.43); ABG PO2 153 MMHG (79-93); ABG TCO2 26.6 MMOL/L (21.0-31.0)
[2019-08-23 13:32] LABS: ALLENS TEST YES-POS; INSPIRED O2 ROOM AIR; PATIENT TEMP 36.2; VENTILATOR NO
[2019-08-23] MEDS ORDERED: HYDR-3820 PO (14:59)
[2019-08-23] MEDS ORDERED: HYDR12.56 PO (15:09)
--- NOTE | 2019-08-23 15:23 | NUR ---
SPOKE WITH THE PT (SHE HAD HER HOME MEDS) WENT THRU THE EXT MED HISTORY AND CALLED KENNETH/DR. ROBLES/DR. HENNESSY TO COMPLETE THE MED REC EVEN THOUGH THE PT HAD HER MEDS WITH HER SHE WAS HAVING A HARD TIME TELLING ME HOW SHE TAKES EACH MED. SHE DID SAYS SHE TAKES THEM HOWEVER THE BOTTLE SAYS. LYRICA- 75MG AND 150MG ARE BOTH LISTED ON THE EXT MED HISTORY AND PT HAD BOTH BOTTLES WITH HER. WHEN I ASKED HOW SHE WAS TAKING OR WHICH SHE WAS TAKING SHE INDICATED SHE TAKES BOTH STRENGTHS- THE 75MG IN THE MORNING AND 150MG BID. I CALLED [facility] TO GET MORE INFORMATION /CLARIFICATION AND BY THEIR RECORDS SHE SHOULD ONLY BE TAKING THE 150MG BID (PREVIOUSLY SHE WAS TAKING 75MG 1 DAILY AND 150MG 1 HS AND IT WAS CHANGED TO 150MG BID). I LEFT BOTH STRENGTHS ON THE MED REC SO THIS DISCREPANCY CAN BE ADDRESSED 04-20-2019 HCTZ 12.5MG THIS SHOWS ON THE MED REC BUT THE PT DIDNT HAVE A BOTTLE AND WAS UNSURE IF SHE IS STILL TAKING. I CALLED DR. ROBLES TO CLARIFY AND THE NURSE INDICATED THAT IT ON THE PTS CURRENT MED LIST. I DOCUMENTED THE PAST DUE FILL ON THE MED REC
[2019-08-24] VITALS (8 sets, daily range): BP systolic 121–152; BP diastolic 73–90
[2019-08-24 03:27] LABS: BASOPHILS # (AUTO) 0.1 10^3/uL (0.0-0.1); BASOPHILS % (AUTO) 1 % (0-10); EOSINOPHILS # (AUTO) 0.1 10^3/uL (0.0-0.3); EOSINOPHILS % (AUTO) 2 % (0-10); HEMATOCRIT 40 % (35-52); HEMOGLOBIN 13.2 G/DL (11.5-16.0); LYMPHOCYTES # (AUTO) 1.2 X 10^3 (1.0-4.0); LYMPHOCYTES % (AUTO) 22 % (12-44); MEAN CORPUSCULAR HEMOGLOBIN 31 PG (25-34); MEAN CORPUSCULAR HGB CONC 33 G/DL (32-36); MEAN CORPUSCULAR VOLUME 93 FL (80-99); MONOCYTES # (AUTO) 0.4 X 10^3 (0.0-1.0); MONOCYTES % (AUTO) 7 % (0-12); NEUTROPHILS # (AUTO) 3.8 X 10^3 (1.8-7.8); NEUTROPHILS % (AUTO) 69 % (42-75); PLATELET COUNT 236 10^3/uL (130-400); RED CELL DISTRIBUTION WIDTH 13.1 % (10.0-14.5); WHITE BLOOD COUNT 5.5 10^3/uL (4.3-11.0)
[2019-08-24 03:47] LABS: CHLORIDE 108 MMOL/L (98-107); POTASSIUM 3.6 MMOL/L (3.6-5.0); SODIUM 143 MMOL/L (135-145)
[2019-08-24 03:49] LABS: CALCIUM 9.1 MG/DL (8.5-10.1); GLUCOSE 105 MG/DL (70-105)
[2019-08-24 03:51] LABS: CARBON DIOXIDE 23 MMOL/L (21-32)
[2019-08-24 03:53] LABS: CREATININE SERUM 0.85 MG/DL (0.60-1.30); GFR ESTIMATED > 60; PHOSPHORUS 2.9 MG/DL (2.3-4.7)
[2019-08-24 03:54] LABS: BUN/CREATININE RATIO 16
--- NOTE | 2019-08-24 04:17 | Pulmonary Consultation ---
History of Present Illness History of Present Illness Date Seen by Provider: Aug 24, 2019 Time Seen by Provider: 04:15 Date of Admission History of Present Illness 64yo with hx of chronic pain presented to ED secondary to decreased responsiveness. Upon ED admission she only responsive to painful stimuli. She is on baclofen, Lyrica, Epitol, Eliquis, and [place]. Pt is now awake and alert requesting pain medication Allergies and Home Medications Allergies Coded Allergies: No Known Drug Allergies (Unverified , 08/07/14) Home Medications Apixaban 5 Mg Tablet, 5 MG PO BID, (Reported) Atorvastatin Calcium 10 Mg Tablet, 10 MG PO HS, (Reported) Baclofen 20 Mg Tablet, 20 MG PO TID, (Reported) Carbamazepine 200 Mg Tablet, 400 MG PO TID, (Reported) TAKES 2 (200MG) TABS THREE TIMES DAILY Dimethyl Fumarate 240 Mg Capsule.dr, 240 MG PO BID, (Reported) Hydrochlorothiazide 12.5 Mg Tablet, 12.5 MG PO DAILY, (Reported) LAST FILLED 04-20-2019 #90/90 DAY SUPPLY Hydrocodone/Acetaminophen 1 Each Tablet, 1 EA PO Q6H PRN for PAIN-MODERATE (5- 7), (Reported) Metoprolol Tartrate 25 Mg Tablet, 12.5 MG PO BID, (Reported) TAKES OF A 25MG TABLET TWICE DAILY Pregabalin 150 Mg Capsule, 150 MG PO BID, (Reported) Pregabalin 75 Mg Capsule, 75 MG PO DAILY, (Reported) Past Ldtasbn-Bcxqqo-Mkcpyy Hx Patient Social History Alcohol Use: Denies Use Recreational Drug Use: No Smoking Status: Unknown if Ever Smoked Recent Foreign Travel: No Contact w/Someone Who Travel: No Recent Infectious Disease Expo: No Recent Hopitalizations: No Physical Abuse: No Sexual Abuse: No Immunizations Up To Date Tetanus Booster (TDap): Unknown PED Vaccines UTD: No Seasonal Allergies Seasonal Allergies: No Past Medical History Surgeries: Yes Breast, Gallbladder, Hysterectomy Respiratory: No Cardiac: Yes Atrial Fibrillation Neurological: Yes (trigeminal neuralgia) Dementia, Multiple Sclerosis Reproductive Disorders: Yes (CERVICAL CANCER) 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 oz. 77.577162cd; 33.31 BMI Method:Stated Exam Exam Vital Signs Date Time Temp Pulse Resp B/P (MAP) Pulse Ox O2 Delivery O2 Flow Rate FiO2 08/24/19 02:00 69 18 152/90 (110) 97 Room Air 08/24/19 01:00 61 08/24/19 01:00 60 10 131/73 (92) 94 Room Air 08/24/19 00:00 97 Room Air 21 08/24/19 00:00 63 20 133/76 (95) 96 Room Air 08/23/19 23:52 36.7 08/23/19 23:00 67 16 136/82 (100) 96 Room Air 08/23/19 22:00 61 15 132/84 (100) 94 Room Air 08/23/19 21:00 62 13 145/85 (105) 95 Room Air 08/23/19 20:00 66 12 129/72 (91) 95 Room Air 08/23/19 20:00 97 Room Air 21 08/23/19 19:00 60 08/23/19 19:00 57 10 120/71 (87) 94 Room Air 08/23/19 18:00 56 10 118/64 (82) 95 Room Air 08/23/19 17:00 57 9 133/71 (91) 95 Room Air 08/23/19 16:00 54 9 122/68 (86) 96 Room Air 08/23/19 16:00 Room Air 08/23/19 15:00 54 9 138/74 (95) 98 Room Air 08/23/19 14:37 55 08/23/19 14:34 52 8 150/77 (101) 99 Room Air 08/23/19 14:15 Room Air 08/23/19 14:15 36.2 08/23/19 13:51 58 9 166/103 99 08/23/19 11:48 36.2 54 18 149/92 (111) 95 Room Air I & O 08/24/19 07:00 Intake Total 120 ml Output Total 1300 ml Balance -1180 ml Height & Weight Height: 5'5.00" Weight: 170lbs. oz. 77.404997tf; 33.31 BMI Method:Stated Capillary Refill: NONE Gastrointestinal: normal bowel sounds, non tender Results Lab Laboratory Tests 08/23/19 11:54 08/24/19 02:52 ROHINI ESPINAL DO Aug 24, 2019 04:17
--- NOTE | 2019-08-24 08:04 | Diagnostic Imaging Report ---
EXAMINATION: Chest 1 view HISTORY: Altered mental status, shortness of breath COMPARISON: 08/23/2019 FINDINGS: The lungs are clear without edema or pneumonia. No pleural effusion or pneumothorax. Heart size is normal. IMPRESSION: 1. Clear lungs. Dictated by: Dictated on workstation # [id number]
--- NOTE | 2019-08-24 08:24 | Short Stay Summary-Hospitalist ---
History of Present Illness HPI/Chief Complaint Pt is a 64yoCF witha PMH of MS and trigeminal neuralgia who presented to the ER due to AMS. She does not remember much of the event and history is obtained from her daughter Carolyn and ER notes. She was brought in by EMS due to decreased LOC after being found by her daughter in that state around 10am. On arrival to the ER she was responsive to sternal rub only. She was given Narcan with no improvement. She aroused with some IVF and was admitted to the ICU for close monitoring. This morning she states she feels well and has no concerns and is requesting discharge. She is speaking very quitely which she said is normal and daughter reports as consistent as well because of her trigeminal neuralgia pain. On review of medications is appears her lyrica was increased but patient states she is still taking 75mg in the morning with the 150mg dose. This will be discontinued upon discharge, Source: patient, family Date Seen 08/24/19 Time Seen by a Provider: 08:24 Attending Physician Mina Delarosa MD PCP No,Local Physician Referring Physician Date of Admission Aug 23, 2019 at 13:30 Home Medications & Allergies Home Medications Reviewed patient Home Medication Reconciliation performed by pharmacy medication reconciliations crown and bridge technician and/or nursing. Patients Allergies have been reviewed. Allergies Allergies Coded Allergies No Known Drug Allergies (Unverified08/07/14) Past Hxcoufb-Fygdhu-Coygda Hx Past Med/Social Hx: Reviewed Nursing Past Med/Soc Hx Patient Social History Alcohol Use: Denies Use Recreational Drug Use: No Smoking Status: Unknown if Ever Smoked Recent Foreign Travel: No Contact w/other who traveled: No Recent Hopitalizations: No Recent Infectious Disease Expo: No Immunizations Up To Date Tetanus Booster (TDap): Unknown Pediatric: No Seasonal Allergies Seasonal Allergies: No Past Medical History Surgeries: Breast, Gallbladder, Hysterectomy Cardiac: Atrial Fibrillation Neurological: Dementia, Multiple Sclerosis Reproductive: Yes (CERVICAL CANCER) Hysterectomy Endocrine: Diabetes, Non-Insulin dep Cancer: Cervical Did You Recieve Any Treatments: Yes What Type of Treatment Did You: Surgical Intervention History of Blood Disorders: No Family History Reviewed Nursing Family Hx No Pertinent Family Hx Review of Systems ROS-Unable to Obtain: due to altered mentation Constitutional: see HPI Physical Exam Physical Exam Vital Signs Vital Signs - First Documented 08/23/19 11:48 Temp 36.2 Pulse 54 Resp 18 B/P (MAP) 149/92 (111) Pulse Ox 95 O2 Delivery Room Air Capillary Refill : NONE Height, Weight, BMI Height: 5'5.00" Weight: 170lbs. oz. 77.526866yh; 33.31 BMI Method:Stated General Appearance: No Apparent Distress, Chronically ill Respiratory: Lungs Clear, No Respiratory Distress Cardiovascular: Regular Rate, Rhythm, No Murmur Gastrointestinal: Normal Bowel Sounds, Non Tender, Soft Genital/Rectal: Other (buenrostro in place) Extremity: No Calf Tenderness, No Pedal Edema Neurologic/Psychiatric: Alert, Oriented x3 Results Results/Procedures Labs Laboratory Tests 08/23/19 11:54 08/24/19 02:52 Patient resulted labs reviewed. Imaging: Reviewed Imaging Report Imaging Date of Exam:08/23/19 CT HEAD WO PROCEDURE: CT head without contrast. TECHNIQUE: Multiple contiguous axial images were obtained through the brain without the use of intravenous contrast. Auto Exposure Controls were utilized during the CT exam to meet ALARA standards for radiation dose reduction. INDICATION: Unresponsiveness. Comparison is made with a prior MRI examination from 05/28/2019. FINDINGS: There is moderate global volume loss. There are patchy regions of hypoattenuation are present within the subcortical, more confluent regions of hypoattenuation within the periventricular white matter that correspond to T2 signal changes on the prior MRI in this patient with reported history of known multiple sclerosis. By CT imaging there are no new regions of loss of modi-white differentiation. There are no findings of hemorrhage. There is no mass effect or shift. The ventricles are mildly prominent compatible with volume loss but unchanged in the previous exam. The posterior fossa demonstrates volume loss but no acute process. Mastoid air cells appear clear. The paranasal sinuses are clear. Orbital contents are unremarkable. There is no calvarial abnormality. IMPRESSION: 1. Age-related global volume loss with white matter density changes compatible with patient's history of multiple sclerosis. There has not been evidence of appreciable interval change compared to prior MRI allowing for differences in modality. By CT imaging, no acute intracranial process is demonstrated. Short Stay Diagnosis Discharge Diagnosis-Short Stay Admission Diagnosis Altered mental status Final Discharge Diagnosis Altered mental status Conclusion Plan Altered mental status MS Likely due to extra Lyrica dose Now back to baseline with meds held Discussed medication compliance Will remove buenrostro and DC home Clinical Quality Measures DVT/VTE Risk/Contraindication: Risk Factor Score Per Nursin RFS Level Per Nursing on Admit: 1=Low/No VTE PPX MINA DELAROSA MD Aug 24, 2019 08:24
--- NOTE | 2019-08-24 08:28 | Discharge Inst-Simple/Standard ---
Discharge Inst-Standard Patient Instructions/Follow Up Plan of Care/Instructions/FU: Please continue to take your medicatons as written. Please follow up with your PCP and your pain doctor to follow up this hospital stay. Activity as Tolerated: Yes Discharge Diet: No Restrictions Return to The Hospital For: Fever, confusion, lethargy, chest pain, shortness of breath, if you feel you are getting worse. MINA DIGGS MD Aug 24, 2019 08:28
== END 2019-08-24 09:50 | disposition home or self-care (01) ==
LOC: EDUNIT# 11:45 → ER 11:47 → ICU 13:30
PROVIDERS: ADMIT Family Medicine; ATTEND Family Medicine
DX: R41.82 Altered mental status, unspecified (principal); I48.91 Unspecified atrial fibrillation; F03.90 Unspecified dementia, unspecified severity, without behavioral disturbance, psychotic disturbance, mood disturbance, and anxiety; G35 Multiple sclerosis; E11.9 Type 2 diabetes mellitus without complications; G50.0 Trigeminal neuralgia; Z90.710 Acquired absence of both cervix and uterus; Z79.01 Long term (current) use of anticoagulants; Z79.899 Other long term (current) drug therapy; Z79.891 Long term (current) use of opiate analgesic
CPT/HCPCS: 36415; 51702; 70450; 71045; 80048; 80053; 80306; 80320; 81000; 82805; 83735; 84100; 85025; 87081; 96374; G0378

== ENCOUNTER → 2021-10-27 | Outpatient (CLI) | payer MEDICARE, MEDICAID ==
[~2021-10-27] MED LIST changes: +HYDR-3820 PO; +HYDR12.56 PO; -NALOXONE 2 MG/2 ML (NARCAN) SYR ONE
== END ==
LOC: CARD 08:30
PROVIDERS: ATTEND Nurse Practitioner Family
DX: I48.91 Unspecified atrial fibrillation (principal)
CPT/HCPCS: 93005

== ENCOUNTER → 2021-10-27 | Outpatient (CLI) | payer MEDICARE, MEDICAID ==
[2021-10-27 08:52] LABS: BILIRUBIN,DIRECT 0.2 MG/DL (0.0-0.3); BILIRUBIN,INDIRECT 0.2 MG/DL; BILIRUBIN,TOTAL 0.4 MG/DL (0.1-1.0); TOTAL PROTEIN 7.3 GM/DL (6.4-8.2)
== END ==
LOC: LAB 08:00
DX: E78.5 Hyperlipidemia, unspecified (principal)
CPT/HCPCS: 36415; 80061; 80076

== ENCOUNTER 2021-11-26 19:57 | Outpatient (CLI) | payer MEDICARE, MEDICAID | END 2021-11-27 05:25 | disposition home or self-care (01) | LOC: SLEEP 19:57 | PROVIDERS: ATTEND Nurse Practitioner Family | DX: Z01.818 Encounter for other preprocedural examination (principal); G47.10 Hypersomnia, unspecified; G47.00 Insomnia, unspecified; I10 Essential (primary) hypertension; G47.61 Periodic limb movement disorder; J43.9 Emphysema, unspecified; I48.91 Unspecified atrial fibrillation | CPT/HCPCS: 95810 ==